=== PATIENT | male | born 1985 | race Caucasian/White ===

== ENCOUNTER 2017-04-15 13:49 | Emergency (ER) | payer SELFPAY ==
[~2017-04-15] VITALS: Ht 177.8 cm; Wt 90.0 kg
[~2017-04-15 13:49] MED LIST: Z.0.NO CURRENT MEDS
[2017-04-15 13:52] VITALS: BP 143/83; PULSE 70; RESP 15; TEMP 98.1; O2SAT 96
[2017-04-15] MEDS ORDERED: predniSONE 20 MG TAB PO ONE (15:00)
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
[2017-04-15] MEDS ORDERED: PRED20 PO (15:02)
== END 2017-04-15 15:51 | disposition home or self-care (01) ==
LOC: NEPD 13:49
DX: L23.7 Allergic contact dermatitis due to plants, except food (principal)
CPT/HCPCS: 99283; J7512

== ENCOUNTER 2017-06-09 22:26 | Emergency (ER) | payer OTHER ==
[~2017-06-09] VITALS: Ht 177.8 cm; Wt 89.0 kg
[~2017-06-09 22:26] MED LIST changes: +PRED20 PO
[2017-06-09 22:27] VITALS: BP 136/89; PULSE 70; RESP 16; TEMP 97.9; O2SAT 97
[2017-06-09] MEDS ORDERED: SODIUM CHLORIDE 0.9% FLUSH 10 ML FLUSH IVF PRN (23:00)
[2017-06-09 23:08] VITALS: O2SAT 99
[2017-06-09 23:17] LABS: BASOPHIL % 0.3 % (0.0-2.0); EOSINOPHIL # 0.7 TH/MM3 (0-0.4); EOSINOPHIL % 5.4 % (0.0-4.0); HEMATOCRIT 45.5 % (39.0-51.0); HEMO FLAGS DIFF FINAL; LYMPH % 24.9 % (9.0-44.0); LYMPHOCYTE # 3.3 TH/MM3 (1.0-4.8); MEAN CELL VOLUME 92.3 FL (80.0-100.0); MEAN CORPUSCULAR HEMOGLOBIN 31.9 PG (27.0-34.0); MEAN CORPUSCULAR HGB CONC 34.6 % (32.0-36.0); MONO % 9.2 % (0.0-8.0); NEUT % 60.2 % (16.0-70.0); PLATELET COUNT 280 TH/MM3 (150-450); RED BLOOD COUNT 4.93 MIL/MM3 (4.50-5.90); RED CELL DISTRIBUTION WIDTH 12.3 % (11.6-17.2); WHITE BLOOD COUNT 13.2 TH/MM3 (4.0-11.0)
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
[2017-06-09 23:40] VITALS: BP 118/77; PULSE 58; RESP 17; O2SAT 96
[2017-06-09 23:42] LABS: BICARBONATE 25.4 MEQ/L (21.0-32.0); POTASSIUM 3.7 MEQ/L (3.5-5.1)
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
[2017-06-10] MEDS ORDERED: IOHEXOL 350 MG/ML 10 ML VIAL (for RAD DIAG) IVCONTRAST ONE (00:18)
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
== END 2017-06-10 01:00 | disposition home or self-care (01) ==
LOC: NEPC 22:26
DX: R51 Headache (principal); M25.511 Pain in right shoulder; S70.211A Abrasion, right hip, initial encounter; R10.9 Unspecified abdominal pain; F17.200 Nicotine dependence, unspecified, uncomplicated; V23.4XXA Motorcycle driver injured in collision with car, pick-up truck or van in traffic accident, initial encounter; Z88.5 Allergy status to narcotic agent
CPT/HCPCS: 70450; 71010; 73030; 73502; 74177; 80048; 85025; 99285; Q9967